=== PATIENT | female | born 1975 | race Caucasian/White ===

== ENCOUNTER 2019-07-22 21:01 | Emergency (ER) | payer MEDICAID, OTHER ==
[~2019-07-22] VITALS: Ht 180.3 cm; Wt 77.1 kg
[2019-07-22 22:05] LABS: Urine Bacteria NONE SEEN /hpf (None Seen); Urine Blood Negative /uL (Negative); Urine Specific Gravity 1.017 (1.001-1.035); Urine WBC 3 /hpf (0 - 5)
[2019-07-23] MEDS ORDERED: AZITHROMYCIN 250 MG TAB PO ONE (02:00)
[2019-07-23] MEDS ORDERED: PENICILLIN G BENZ 1200000 UNITS/2 ML SYRG IM ONE (02:00)
[2019-07-23] MEDS ORDERED: cefTRIAXone SOD 1,000 MG VL IM ONE (02:00)
[2019-07-23 02:39] VITALS: BP 120/80
[2019-07-24 05:06] LABS: RPR Non Reactive (Non Reactive)
== END 2019-07-23 02:40 | disposition home or self-care (01) ==
LOC: ER 21:04
DX: N89.8 Other specified noninflammatory disorders of vagina (principal); Z20.2 Contact with and (suspected) exposure to infections with a predominantly sexual mode of transmission
CPT/HCPCS: 81001; 81025; 84112; 86256; 86592; 86703; 87210; 87491; 87591; 96372; 99283; J0561; J0696

== ENCOUNTER 2025-01-28 08:29 | Outpatient (CLI) | payer OTHER ==
[2025-01-28 09:23] LABS: Hematocrit 39.7 % (36.0-46.0); Hemoglobin 13.1 g/dL (12.2-16.2); Mean Corpuscular Hemoglobin 28.4 pg (28.0-32.0); Mean Corpuscular Volume 85.8 fL (80.0-100.0); Nucleated Red Blood Cells % 0.1 %
[2025-01-28 09:33] LABS: Alanine Aminotransferase 10 U/L (7-40); Alkaline Phosphatase 74 U/L (46-116); Anion Gap 9 (5-15); BUN/Creatinine Ratio 10.3 (10.0-20.0); Blood Urea Nitrogen 9 mg/dL (9-23); Calcium 10.1 mg/dL (8.7-10.4); Carbon Dioxide 24 mmol/L (20-31); Cholesterol 199 mg/dL (< 200); Glucose 100 mg/dL (74-106); Potassium 4.1 mmol/L (3.5-5.1); Sodium 142 mmol/L (136-145); Total Protein 7.1 g/dL (5.7-8.2); Triglycerides 82 mg/dL (< 150)
[2025-01-28 09:34] LABS: Bilirubin, Total 0.6 mg/dL (0.2-1.0)
[2025-01-28 09:35] LABS: Albumin 4.9 g/dL (3.2-4.8); Chloride 109 mmol/L (98-107); HDL Cholesterol 64 mg/dL (40-59)
[2025-01-28 10:37] LABS: Follicle Stimulating Hormone 18.74 IU/L (SEE BELOW)
== END 2025-01-28 17:00 | disposition home or self-care (01) ==
LOC: LAB 08:29
PROVIDERS: ATTEND Internal Medicine
DX: E78.00 Pure hypercholesterolemia, unspecified (principal); R68.89 Other general symptoms and signs; N95.9 Unspecified menopausal and perimenopausal disorder; L68.0 Hirsutism
CPT/HCPCS: 36415; 80053; 80061; 83001; 83002; 83036; 84403; 85025

== ENCOUNTER 2025-03-05 14:22 | Inpatient (IN) | payer OTHER, MEDICAID ==
[~2025-03-05] VITALS: Ht 180.3 cm; Wt 117.0 kg
--- NOTE | 2025-03-05 15:20 | DVH ---
CHEST RADIOGRAPH Indication: weakness Technique: Single frontal view of the chest was obtained Comparison: XY CHEST TWO VIEWS ROUTINE on DOS: 01/28/25 FINDINGS: Lines and Tubes: None Lungs: No focal consolidation. Pleura: No effusion. No pneumothorax. Cardiomediastinal contours: Unremarkable Bones: No acute osseous abnormality. IMPRESSION: 1. No acute cardiopulmonary disease. 2. Mild elevation left diaphragm.
[2025-03-05 15:22] LABS: Hematocrit 40.3 % (36.0-46.0); Hemoglobin 13.6 g/dL (12.2-16.2); Mean Corpuscular Hemoglobin 28.0 pg (28.0-32.0); Mean Corpuscular Volume 83.0 fL (80.0-100.0); Nucleated Red Blood Cells % 0.0 %
[2025-03-05 15:29] LABS: Potassium 4.1 mmol/L (3.5-5.1); Sodium 142 mmol/L (136-145)
[2025-03-05 15:30] LABS: Anion Gap 10 (5-15); Carbon Dioxide 21 mmol/L (20-31)
[2025-03-05 15:31] LABS: Calcium 9.1 mg/dL (8.7-10.4); Chloride 111 mmol/L (98-107)
[2025-03-05 15:35] LABS: BUN/Creatinine Ratio 16.7 (10.0-20.0); Blood Urea Nitrogen 11 mg/dL (9-23); Glucose 97 mg/dL (74-106)
--- NOTE | 2025-03-05 16:36 | ED.PDOC ---
HPI (NEURO) HPI Comments This is a 50 year old female ROGERA presenting to the ED with chief complaint of generalized weakness. Patient reports that she has been experiencing generalized weakness for the past week along with associated dizziness, nausea, vomiting, and diarrhea for the past 2 days. Patient notes history of migraines, but her medication had not provided relief. Patient denies any headache, chest pain, SOB, fever, chills, or syncope. Chief Complaint: General Weakness Time Seen by MD: 14:00 Primary Care Provider: LILLIAN Lujan Notes: Nurses Notes, Switchboard Receptionist Notes, Medications, Allergies Information Source: Patient, Emergency Med Personnel Mode of Arrival: EMS Severity: Moderate Dizziness/Weakness Severity: Unable to do activities Headache Severity: None Timing: Days, Weeks Duration: Since onset Prehospital treatment: None Weakness Location: Generalized Onset: At rest Circumstances: Spontaneous Symptoms: Vertigo, Weakness Past Medical History Past Medical History (Other): Migraines Surgical History: Denies all surgeries HEAD OF MARKETING History: No Pertinent HEAD OF MARKETING History Family History Family History: Reviewed,noncontributory to illness, No family hx of Cancer, No family hx of DM, No family hx of Heart hao, No family hx of HTN, No family hx ofKidney hao, No family hx of Liver hao, No family hx of Lung hao, No family hx of Stroke Social History Smoker: Non-Smoker Alcohol: Denies ETOH Use Drugs: Denies Drug Use Lives In: Home Constitutional: denies: chills, diaphoresis, fatigue, fever, malaise, sweats, weakness, others EENTM: denies: blurred vision, double vision, ear bleeding, ear discharge, ear drainage, ear pain, ear ringing, eye pain, eye redness, hearing loss, mouth pain, mouth swelling, nasal discharge, nose bleeding, nose congestion, nose pain, photophobia, tearing, throat pain, throat swelling, voice changes, others Respiratory: denies: cough, hemoptysis, orthopnea, SOB at rest, shortness of breath, SOB with excertion, stridor, wheezing, others Cardiovascular: denies: chest pain, dizzy spells, diaphoresis, Dyspnea on exertion, edema, irregular heart beat, left arm pain, lightheadedness, palpitations, PND, syncope, others Gastrointestinal: reports: diarrhea, nausea, vomiting; denies: abdomen distended, abdominal pain, blood streaked bowels, constipated, dysphagia, difficulty swallowing, hematemesis, melena, poor appetite, poor fluid intake, rectal bleeding, rectal pain, others Genitourinary: denies: abnormal vagina bleeding, burning, dyspareunia, dysuria, flank pain, frequency, hematuria, incontinence, pain, , vagina discharge, urgency, others Neurological: reports: dizziness, weakness; denies: fainting, headache, left sided numbness, left sided weakness, numbness, paresthesia, pre-existing deficit, right sided numbness, right sided weakness, seizure, speech problems, tingling, tremors, others Musculoskeletal: denies: back pain, gout, joint pain, joint swelling, muscle pain, muscle stiffness, neck pain, others Integumetry: denies: bruises, change in color, change in hair/nails, dryness, laceration, lesions, lumps, rash, wounds, others Allergic/Immunocompromised: denies: Difficulty Healing, Frequent Infections, Hives, Itching, others Hematologic/Lymphatic: denies: anemia, blood clots, easy bleeding, easy bruising, swollen glands, others Endocrine: denies: excessive hunger, excessive sweating, excessive thirst, excessive urination, flushing, intolerance to cold, intolerance to heat, unexplained weight gain, unexplained weight loss, others Psychiatric: denies: anxiety, bipolar disorder, depression, hopeless, panic disorder, schizophrenia, sleepless, suicidal, others All Other Systems: Reviewed and Negative Physical Exam General Appearance: No Apparent Distress, Normal HEENT: Normal ENT Inspection, Pharynx Normal, TMs Normal Neck: Full Range of Motion, Non-Tender, Normal, Normal Inspection Respiratory: Chest Non-Tender, Lungs Clear, No Accessory Muscle Use, No Respiratory Distress, Normal Breath Sounds Cardiovascular: No Edema, No JVD, No Murmur, No Gallop, Normal Peripheral Pulses, Regular Rate/Rhythm Breast Exam: Deferred Gastrointestinal: No Organomegaly, Non Tender, No Pulsatile Mass, Normal Bowel Sounds, Soft Genitalia: Deferred Pelvic: Deferred Rectal: Deferred Extremities: No calf tenderness, Normal capillary refill, Normal inspection, Normal range of motion, Non-tender, No pedal edema Musculoskeletal : Apperance: Normal Neurologic: Alert, buccaro II-XII nml as Tested, No Motor Deficits, Normal Affect, Normal Mood, No Sensory Deficits Cerebellar Function: Normal Reflexes: Normal Skin: Dry, Normal Color, Warm Lymphatic: No Adenopathy Was a procedure done? Was a procedure done?: No Differential Diagnosis (SZ) Seizure: N/A CVA: Hypoglycemia, Hypoxemia General Weakness: Dehydration, Dysrhythmia, Electrolyte imbalance, Hypotension, Repiratory failure Headache: N/A X-Ray, Labs, Meds, VS Vital Signs Date Time Temp Pulse Resp B/P (MAP) Pulse Ox O2 Delivery O2 Flow Rate FiO2 03/05/25 14:25 98.0 62 18 137/79 97 98.0 Lab Test 03/05/25 17:52 03/05/25 15:51 03/05/25 15:08 Range/Units Troponin I High Sensitivity Pending < 3 L < 3 L </=34 ng/L White Blood Count 7.9 4.4-10.8 10^3/uL Red Blood Count 4.86 4.0-5.20 10^6/uL Hemoglobin 13.6 12.2-16.2 g/dL Hematocrit 40.3 36.0-46.0 % Mean Corpuscular Volume 83.0 80.0-100.0 fL Mean Corpuscular Hemoglobin 28.0 28.0-32.0 pg Mean Corpuscular Hemoglobin Concent 33.8 32.0-36.0 g/dL Red Cell Distribution Width 14.3 11.8-14.3 % Platelet Count 331 140-450 10^3/uL Mean Platelet Volume 7.7 6.9-10.8 fL Neutrophils (%) (Auto) 79.3 37.0-80.0 % Lymphocytes (%) (Auto) 14.1 10.0-50.0 % Monocytes (%) (Auto) 4.9 0.0-12.0 % Eosinophils (%) (Auto) 0.7 0.0-7.0 % Basophils (%) (Auto) 1.0 0.0-2.0 % Neutrophils # (Auto) 6.3 1.6-8.6 10 ^3/uL Lymphocytes # (Auto) 1.1 0.4-5.4 10 ^3/uL Monocytes # (Auto) 0.4 0-1.3 10 ^3/uL Eosinophils # (Auto) 0.1 0-0.8 10 ^3/uL Basophils # (Auto) 0.1 0-0.2 10 ^3/uL Nucleated Red Blood Cells 0.0 % Sodium Level 142 136-145 mmol/L Potassium Level 4.1 3.5-5.1 mmol/L Chloride Level 111 H 98-107 mmol/L Carbon Dioxide Level 21 20-31 mmol/L Anion Gap 10 5-15 Blood Urea Nitrogen 11 9-23 mg/dL Creatinine 0.66 0.550-1.02 mg/dL Glomerular Filtration Rate Calc 108 >90 mL/min BUN/Creatinine Ratio 16.7 10.0-20.0 Serum Glucose 97 74-106 mg/dL Calcium Level 9.1 8.7-10.4 mg/dL Time of 1ST Reevaluation: 15:00 Reevaluation 1ST: Unchanged Patient Education/Counseling: Diagnosis, Treatment Family Education/Counseling: No Family Present Departure 1 Departure Time of Disposition: 18:43 (Patient with worsening weakness and multiple episodes of near-syncope. We will admit patient for further workup and expert consultation) Impression: Primary Impression: Generalized weakness Additional Impression: Near syncope Disposition: ADMITTED INPATIENT Admit to: Med Surg Condition: Serious Critical Care Note Critical Care Time?: No Stability Stability form required: No Heart Score Heart Score: Heart Score Response (Comments) Value History N/A 0 EKG N/A 0 Age N/A 0 Risk Factors N/A 0 Troponin N/A 0 Total 0 I personally scribed for CARLOS GEE MD ([email or web address]) on 03/05/25 at 16:36. Electronically submitted by Isael Vivas ([email or web address]). CARLOS GEE MD Mar 05, 2025 16:36
[2025-03-05 19:42] LABS: Urine Protein, UAD Negative (Negative)
--- NOTE | 2025-03-05 19:52 | DVH ---
CLINICAL HISTORY: near syncope TECHNIQUE: Helical scanning was performed of the head from the skull base to the vertex. Multiplanar reconstructions were performed. This exam was performed according to our departmental dose optimizat ion program. Up-to-date CT equipment and radiation dose reduction techniques are utilized as appropri ate. CTDI 63.6 DLP 07/02/44 .4 I did edit COMPARISON: None FINDINGS: There is no evidence for acute intracranial hemorrhage, acute ischemic changes, mass, mass effect, or extra-axial fluid collection. There is no hydrocephalus or midline shift. There is no effacement of the cerebral sulci and basal subarachnoid cisterns. The davila-white matter differentiation is well alida ntained. The imaged paranasal sinuses are clear. IMPRESSION: NO ACUTE INTRACRANIAL ABNORMALITY SEEN.
[2025-03-05] MEDS: ONDANSETRON HCL 4 MG/2 ML VIAL IV ONE (20:57)
[2025-03-05] MEDS: SODIUM CHLORIDE 0.9% 1,000 ML IV ONE (20:58)
[2025-03-05 22:20] VITALS: PULSE 69; RESP 18; O2SAT 98
[2025-03-05] MEDS ORDERED: SODIUM CHLORIDE 0.9% 1,000 ML IV SCH (23:30)
[2025-03-05] MEDS ORDERED: DOCUSATE SOD 100 MG CAP PO PRN (23:30)
[2025-03-05] MEDS ORDERED: ACETAMINOPHEN 325 MG TAB PO PRN (23:30)
[2025-03-06] VITALS (10 sets, daily range): BP systolic 117–143; BP diastolic 66–95; PULSE 53–81; RESP 16–22; TEMP 97.4–98.2; O2SAT 97–100
[2025-03-06] MEDS: SODIUM CHLORIDE 0.9% 1,000 ML IV SCH (06:15)
[2025-03-06] MEDS ORDERED: ALBUTEROL SULF 2.5 MG/0.5ML(0.5%) NEB SOLN NEB PRN (06:15)
[2025-03-06] MEDS ORDERED: ACETAMINOPHEN 325 MG TAB PO PRN (06:15)
[2025-03-06] MEDS ORDERED: SUMA50TA16 PO (06:34)
[2025-03-06] MEDS: ONDANSETRON HCL 4 MG/2 ML VIAL IV PRN (07:03)
[2025-03-06] MEDS: PANTOPRAZOLE 40 MG/10 ML VIAL INJ IV SCH (07:03)
[2025-03-06 07:42] LABS: Hematocrit 36.9 % (36.0-46.0); Hemoglobin 12.6 g/dL (12.2-16.2); Mean Corpuscular Hemoglobin 28.2 pg (28.0-32.0); Mean Corpuscular Volume 82.9 fL (80.0-100.0); Nucleated Red Blood Cells % 0.0 %
[2025-03-06 07:44] LABS: Alanine Aminotransferase 12 U/L (7-40); Alkaline Phosphatase 69 U/L (46-116); Anion Gap 11 (5-15); BUN/Creatinine Ratio 11.3 (10.0-20.0); Calcium 8.9 mg/dL (8.7-10.4); Glucose 82 mg/dL (74-106); Sodium 142 mmol/L (136-145); Total Protein 6.7 g/dL (5.7-8.2)
[2025-03-06 07:45] LABS: Albumin 4.2 g/dL (3.2-4.8); Bilirubin, Total 0.6 mg/dL (0.2-1.0)
[2025-03-06 07:56] LABS: Blood Urea Nitrogen 8 mg/dL (9-23); Carbon Dioxide 20 mmol/L (20-31); Chloride 111 mmol/L (98-107); Potassium 3.5 mmol/L (3.5-5.1)
[2025-03-06 08:03] LABS: Magnesium 1.9 mg/dL (1.6-2.6)
--- NOTE | 2025-03-06 09:36 | DVHHPRES ---
History of Present Illness Resident Creating Document: CHIARA ROSS RESIDENT History of Present Illness History of Present Illness (HPI): Adore Argueta is a 50-year-old female with a medical history of migraines, asthma, and dyslipidemia who presented to the emergency department via ambulance with a chief complaint of generalized weakness. She reported experiencing this weakness for the past week, which was accompanied by dizziness, nausea, vomiting, and diarrhea over the last two days. On the morning prior to presentation, she had a migraine episode that was not relieved by her usual medication, along with significant dizziness and five episodes of non-bloody vomiting at home. These symptoms left her unable to walk. She denied eating anything unusual before the onset of symptoms and reported no loss of consciousness or falls. Additionally, she denied headache at the time of evaluation, as well as chest pain, shortness of breath, fever, chills, or s yncope. Past Medical History (PMH): migraines, asthma, and dyslipidemia Past Surgical History (PSH): No surgical history Family history (FH): history of stroke and leukemia in grandmother EtOH: occasional alcohol use Smoking /Vaping: patient denies smoking Recreational Drugs: admits to use of marijuana Residence: lives with and child Home Medications: no home medications Allergies: citrus fruits PCP: Dr. Lou Specialist relevant to admission: nonrelevant Review of Systems Review of Systems General: Complains of generalized tiredness, patient denies fever, weakness, sweating, any recent changes in appetite and weight HEENT: Complains of headache Cardiovascular: Denies chest pain, palpitations, dyspnea on exertion, orthopnea, or claudication. Respiratory: No cough, and wheezing. Gastrointestinal: Complains of vomiting, Denies nausea, dysphagia, odynophagia, heartburn, abdominal pain, flatulence, bloating, diarrhea, constipation, change in stool, or blood in stool. Genitourinary: No dysuria, hematuria, discharge, frequency, urgency, nocturia, incontinence, and urinary retention. Endocrine: No heat or cold intolerance, polydipsia, polyuria, and polyphagia. Neurological: No dizziness, extremity weakness and numbness, tremors, gait disturbance, seizures, and memory impairment. Psychiatric: Denies depression, anxiety,or insomnia. Musculoskeletal: Denies neck pain, stiffness and swelling, back pain, muscle weakness, joint pain, stiffness, swelling, or limited range of motion. Skin: No rashes, itching, skin lesion, changes in hair, nail, skin texture and breast. Hematologic/Lymphatic: Denies easy bruising, bleeding tendencies, or lymph node enlargement. Allergies: Uncoded Allergies: oranges (Allergy, Intermediate, hives, 03/06/25) patient stated she cant eat or touch oranges, harsh or fruit from that family, patient stats she has bad reactions. Medications Current Medications Medications Dose Ordered Sig/Cat Route Start Time Stop Time Status Last Admin Dose Admin Ondansetron HCl 4 mg Q4HP PRN IV 03/05/25 23:30 03/06/25 07:03 4 MG Docusate Sodium 100 mg BIDPRN PRN PO 03/05/25 23:30 Sodium Chloride 1,000 ml @ 100 mls/hr Q10H IV 03/06/25 06:15 03/06/25 06:15 100 MLS/HR Acetaminophen 650 mg Q4HP PRN PO 03/06/25 06:15 Albuterol 2.5 mg Q6HPRN PRN NEB 03/06/25 06:15 Ceftriaxone Sodium 50 ml @ 100 mls/hr DAILY@09 IV 03/06/25 09:00 Pantoprazole Sodium 40 mg DAILY IV 03/06/25 06:15 03/06/25 07:03 40 MG Exam Vital Signs Vital Signs Date Time Temp Pulse Resp B/P (MAP) Pulse Ox O2 Delivery O2 Flow Rate FiO2 03/06/25 08:08 97 Room Air* 0 21 03/06/25 05:00 98.1 58 17 134/90 (105) 98.1 Exam General Appearance: Alert, Oriented X3, Cooperative, No acute distress HEENT: Atraumatic, PERRLA, EOMI, Mucous membrane moist/pink Respiratory: Clear to auscultation, Normal air movement Cardiovascular: Regular rate, Normal S1, Normal S2, No murmurs, no chest wall tenderness Abdominal: Diffuse abdominal tenderness present Extremities: No clubbing, No cyanosis, No edema, Normal pulses, No tenderness/swelling Skin: No rashes, No breakdown, No significant lesion Neuro: Normal gait, Normal speech, Strength at 5/5 X4 ext, Normal tone, Sensation intact, Cranial nerves 3-12 NL, Reflexes 2+ Psych/Mental Status: Mental status NL, Mood NL Labs/Xrays Labs Test 03/06/25 06:51 03/05/25 19:25 03/05/25 17:52 Range/Units White Blood Count 7.9 4.4-10.8 10^3/uL Red Blood Count 4.45 4.0-5.20 10^6/uL Hemoglobin 12.6 12.2-16.2 g/dL Hematocrit 36.9 36.0-46.0 % Mean Corpuscular Volume 82.9 80.0-100.0 fL Mean Corpuscular Hemoglobin 28.2 28.0-32.0 pg Mean Corpuscular Hemoglobin Concent 34.0 32.0-36.0 g/dL Red Cell Distribution Width 14.3 11.8-14.3 % Platelet Count 287 140-450 10^3/uL Mean Platelet Volume 7.9 6.9-10.8 fL Neutrophils (%) (Auto) 69.2 37.0-80.0 % Lymphocytes (%) (Auto) 22.0 10.0-50.0 % Monocytes (%) (Auto) 7.0 0.0-12.0 % Eosinophils (%) (Auto) 1.1 0.0-7.0 % Basophils (%) (Auto) 0.7 0.0-2.0 % Neutrophils # (Auto) 5.4 1.6-8.6 10 ^3/uL Lymphocytes # (Auto) 1.7 0.4-5.4 10 ^3/uL Monocytes # (Auto) 0.5 0-1.3 10 ^3/uL Eosinophils # (Auto) 0.1 0-0.8 10 ^3/uL Basophils # (Auto) 0.1 0-0.2 10 ^3/uL Nucleated Red Blood Cells 0.0 % Sodium Level 142 136-145 mmol/L Potassium Level 3.5 3.5-5.1 mmol/L Chloride Level 111 H 98-107 mmol/L Carbon Dioxide Level 20 20-31 mmol/L Anion Gap 11 5-15 Blood Urea Nitrogen 8 L 9-23 mg/dL Creatinine 0.71 0.550-1.02 mg/dL Glomerular Filtration Rate Calc 105 >90 mL/min BUN/Creatinine Ratio 11.3 10.0-20.0 Serum Glucose 82 74-106 mg/dL Calcium Level 8.9 8.7-10.4 mg/dL Phosphorus Level 2.4 2.4-5.1 mg/dL Magnesium Level 1.9 1.6-2.6 mg/dL Total Bilirubin 0.6 0.2-1.0 mg/dL Aspartate Amino Transferase (AST) 13 13-40 U/L Alanine Aminotransferase (ALT) 12 7-40 U/L Alkaline Phosphatase 69 46-116 U/L B-Type Natriuretic Peptide 21.55 0-100 pg/mL Total Protein 6.7 5.7-8.2 g/dL Albumin 4.2 3.2-4.8 g/dL Vitamin B12 Level 457 211-911 pg/mL Beta HCG, Quantitative < 0.0 L 1.5-4.2 mIU/mL Plasma/Serum Blood Alcohol < 3.0 <10 mg/dL Urine Color Yellow Yellow Urine Clarity Turbid H Clear Urine pH 5.5 5.0-9.0 Urine Specific [place] 1.027 1.001-1.035 Urine Protein Negative Negative Urine Ketones 3+ H Negative Urine Blood Negative Negative /uL Urine Nitrite Negative Negative Urine Bilirubin Negative Negative Urine Urobilinogen Normal Negative mg/dL Urine Leukocyte Esterase 2+ Negative /uL Urine RBC 7 0 - 4 /hpf Urine Microscopic WBC 6 H 0-5 /HPF Urine Squamous Epithelial Cells Few <5 /hpf Urine Bacteria Few H None Seen /hpf Urine Mucus Few None Seen Urine Glucose Normal Normal mg/dL Troponin I High Sensitivity < 3 L </=34 ng/L SEPSIS Sepsis Screen Date sepsis recognized/suspect: Mar 05, 2025 Time Sepsis recognized/suspect: 1424 Recent Procedure: No On Antibiotic Therapy: No Respiratory Rate >20: No Heart Rate >90: No Temp<36 C (96.8 F) or >38.3 C: No SBP <90 or MAP <65 mmHG: No New Acute Mental Status Change: No Is the patient on CPAP, BIPAP,: No Physician Orders Sodium Chloride 0.9% (03/06/25 06:15) Acetaminophen Tablet (Tylenol Tablet) (03/06/25 06:15) Urine Bacterial Culture (03/06/25 06:02) Blood Culture (03/06/25 06:02) Albuterol Medneb (Ventolin Medneb) (03/06/25 06:15) Transfer Orders (03/06/25 06:02) Orthostatic Vital Signs (03/06/25 06:02) Ceftriaxone 1gm/50ml (Rocephin) (03/06/25 09:00) Electrocardigram (03/06/25 06:02) Lactic Acid W/ Reflex Order (03/06/25 06:02) Pantoprazole (Protonix) (03/06/25 06:15) Clostridium Difficile Toxin (03/06/25 06:02) Ova & Parasite Exam (03/06/25 06:02) Stool Bacterial Culture (03/06/25 06:02) Stool Occult Blood (03/06/25 06:02) Gram Stain (03/06/25 06:02) Stool Wbc (03/06/25 06:02) Npo Except Ice Chips (03/06/25 06:02) Npo (Nothing By Mouth) Diet (03/06/25 Breakfast) Chlamydia/Gc Amplification (03/06/25 06:18) Echo 2d Mode Cardiac Dop (03/06/25 06:22) Drug Screen (03/06/25 09:17) Thyroid Stimulating Hormone (03/06/25 09:17) PTPTT (03/06/25 09:17) Enoxaparin Sodium (Lovenox) (03/06/25 10:00) Vital Signs Date Time Temp Pulse Resp B/P (MAP) Pulse Ox O2 Delivery O2 Flow Rate FiO2 03/06/25 08:08 97 Room Air* 0 21 03/06/25 08:08 97 Room Air 0.0 03/06/25 05:00 98.1 58 17 134/90 (105) 98 98.1 03/06/25 04:02 58 17 98 Room Air* 0 21 Laboratory Tests Test 03/06/25 06:51 White Blood Count 7.9 10^3/uL (4.4-10.8) Medications Medications Dose Ordered Sig/Cat Route Start Time Stop Time Status Last Admin Dose Admin Ondansetron HCl 4 mg Q4HP PRN IV 03/05/25 23:30 03/06/25 07:03 4 MG Pantoprazole Sodium 40 mg DAILY IV 03/06/25 06:15 03/06/25 07:03 40 MG Sodium Chloride 1,000 ml @ 100 mls/hr Q10H IV 03/06/25 06:15 03/06/25 06:15 100 MLS/HR Assessment/Plan Assessment/Plan # Presyncope to rule out cardiac and neurological causes - EKG - ECHO - CT head showed no intracranial abnormalities - BNP - admitted to telemetry # Urinary tract infection - IV ceftriaxone - Urine culture, blood culture # To rule out acute gastroenteritis - stool bacterial culture, stool ova and parasite exam - kept on NPO, progress gradually to clear liquid diet and soft foods as tolerated # History of asthma - albuterol nebulization as needed # History of migraine - acetaminophen as needed PUD prophylaxis: protonix 40mg DVT prophylaxis: brisk movement. Barriers to discharge: Medical diagnosis and management in progress. Patient lives with family. Independent for ADL. PCP: Dr. Lou Specialist Relevant To Admission: nonrelevant Case discussed with Dr. Lou. Code Status: Full Code. Complex patient care discussion needed. Spend total 37 minutes for bedside assessment, case discussion and management. Plan discussed with: Patient My Orders Orders - CHIARA ROSS RESIDENT Procedure Category Date Status Time Admit ADMIT 03/05/25 Transmitted 23:22 Allergies WHITNEY 03/05/25 In Process 23:22 Code Status CODE 03/05/25 Transmitted 23:22 Ondansetron Hcl PHA 03/05/25 In Process (Zofran) 23:30 Docusate Sodium PHA 03/05/25 In Process Capsule (Colace 23:30 Condition: Fair WHITNEY 03/05/25 In Process 23:22 Sodium Chloride 0.9% PHA 03/06/25 In Process 06:15 Acetaminophen Tablet PHA 03/06/25 In Process (Tylenol Tablet) 06:15 Urine Bacterial JEROME 03/06/25 In Process Culture 06:02 Blood Culture JEROME 03/06/25 Logged 06:02 Albuterol Medneb PHA 03/06/25 In Process (Ventolin Medneb) 06:15 Transfer Orders XFER 03/06/25 Transmitted 06:02 Orthostatic Vital ORDERS 03/06/25 Transmitted Signs 06:02 Ceftriaxone 1gm/50ml PHA 03/06/25 In Process (Rocephin) 09:00 Electrocardigram EKG 03/06/25 Logged 06:02 Lactic Acid W/ Reflex LAB 03/06/25 Logged Order 06:02 Pantoprazole PHA 03/06/25 In Process (Protonix) 06:15 Clostridium Difficile JEROME 03/06/25 Logged Toxin 06:02 Ova & Parasite Exam JEROME 03/06/25 Logged 06:02 Stool Bacterial JEROME 03/06/25 Logged Culture 06:02 Stool Occult Blood LAB 03/06/25 Logged 06:02 Gram Stain JEROME 03/06/25 Logged 06:02 Stool Wbc LAB 03/06/25 Logged 06:02 Npo Except Ice Chips WHITNEY 03/06/25 In Process 06:02 Npo (Nothing By DIET 03/06/25 Transmitted Mouth) Diet Breakfast Chlamydia/Gc LAB 03/06/25 Logged Amplification 06:18 Echo 2d Mode Cardiac US 03/06/25 Logged DOP 06:22 Date of Service: Mar 05, 2025 Billing Provider: RAMÓN LOU MD Common Visit Codes: [id number] INP/OBS CARE (HIGH) Secondary Visit Codes: [id number] CARE PLAN 30 MINUTES CHIARA ROSS RESIDENT Mar 06, 2025 09:36
[2025-03-06 09:47] LABS: Cannabinoid Screen, Urine Pos (NEGATIVE)
[2025-03-06 09:50] LABS: Barbiturate Scree,Urine Neg (NEGATIVE); Opiate Scree,Urine Neg (NEGATIVE); Phencyclidine Screen, Urine Neg (NEGATIVE)
[2025-03-06 09:51] LABS: Amphetamine Screen, Urine Neg (NEGATIVE); Benzodiazephine Screen, Urine Neg (NEGATIVE); Cocaine Screen, Urine Neg (NEGATIVE)
[2025-03-06] MEDS ORDERED: MECLIZINE HCL 25 MG TAB PO PRN (10:45)
[2025-03-06] MEDS: ENOXAPARIN SOD 40 MG/0.4 ML SYRINGE SC SCH (11:21)
[2025-03-06] MEDS ORDERED: IBUPROFEN 600 MG TAB PO PRN ×2 (11:30→15:45)
[2025-03-06 11:54] LABS: INR 1.08 (0.9-1.15); Partial Thromboplastin Time 30.5 SEC (24.5-34.5); Prothrombin Time 11.4 sec (9.3-11.8)
--- NOTE | 2025-03-06 16:23 | DVHPNRES ---
Progress Note Date Seen: Mar 06, 2025 Resident Creating Document: JUAN CONNELL RESIDENT Medical Necessity Reason Pt with a Central, PICC or Fol: No Subjective Review of Systems This is a 50-year-old female who presented to the ED with a chief complaint of i ntractable nausea and vomiting followed by generalized weakness. The patient mentions she had nausea, vomiting and diarrhea since 2 days. The patient mentions she woke up in the middle of the night with a migraine headache 1 day back and had 5 episodes of vomiting, which made her feel so weak that she could not walk to the bathroom and had to crawl to the bathroom. She also experienced dizziness the patient explained as a feeling like the whole room is spinning. She tried taking her migraine medication but it did not relieve her symptoms. She experienced generalized weakness after the episodes and hence came to the hospital. She denies any headache, fever, chills or syncope. Past medical history: Migraine, asthma, dyslipidemia Past surgical history: No surgical history Social & Personal history: Lives with and children Smoking: Patient denies Alcohol: Occasionally Drugs: Occasional use of marijuana Allergies: Uncoded Allergies: oranges (Allergy, Intermediate, hives, 03/06/25) patient stated she cant eat or touch oranges, harsh or fruit from that family, patient stats she has bad reactions. Patient seen and examined at bedside. Patient is alert and oriented to time, place person and responding to all questions. Patient complains of headache. Eyes: No Pain, No Vision change, No Conjunctivae inflammation, No Eyelid inflammation, No Redness ENT: No Ear pain, No Ear discharge, No Nose pain, No Nose discharge, No Nose congestion, No Mouth pain, No Mouth swelling, No Throat pain, No Throat swelling Cardiovascular: No Chest Pain, No Palpitations, No Orthopnea, No Paroxysmal No Dyspnea, No Edema, No Lt Headedness Respiratory: No Cough, No Dry, No Shortness of breath, No SOB with exertion, No Wheezing, No Hemoptysis, No Pleuritic Pain, No Sputum Gastrointestinal: Nausea, No Vomiting, No Abdominal Pain, No Diarrhea, No Constipation, No Melena, No Hematochezia Genitourinary: No Dysuria, No Frequency, No Incontinence, No Hematuria, No Retention Objective vital signs Vital Sign Date Time Temp Pulse Resp B/P (MAP) Pulse Ox O2 Delivery O2 Flow Rate FiO2 03/06/25 13:00 97.7 64 22 139/91 (107) 100 97.7 03/06/25 11:04 0.0 21 03/06/25 08:08 Room Air* Total Intake and Output 03/05/25 03/05/25 03/06/25 15:00 23:00 07:00 Intake Total 150 ml Balance 150 ml medications Current Medications Medications Dose Ordered Sig/Cat Route Start Time Stop Time Status Last Admin Dose Admin Ondansetron HCl 4 mg Q4HP PRN IV 03/05/25 23:30 03/06/25 07:03 4 MG Docusate Sodium 100 mg BIDPRN PRN PO 03/05/25 23:30 Sodium Chloride 1,000 ml @ 100 mls/hr Q10H IV 03/06/25 06:15 03/06/25 06:15 100 MLS/HR Acetaminophen 650 mg Q4HP PRN PO 03/06/25 06:15 Albuterol 2.5 mg Q6HPRN PRN NEB 03/06/25 06:15 Ceftriaxone Sodium 50 ml @ 100 mls/hr DAILY@09 IV 03/06/25 09:00 03/06/25 11:21 100 MLS/HR Pantoprazole Sodium 40 mg DAILY IV 03/06/25 06:15 03/06/25 11:21 40 MG Enoxaparin Sodium 40 mg DAILY SC 03/06/25 10:00 03/06/25 11:21 40 MG Meclizine HCl 12.5 mg [id number] PRN PO 03/06/25 10:45 Sumatriptan Succinate 50 mg DAILY PO 03/07/25 10:00 Future Hold Ibuprofen 600 mg Q6HP PRN PO 03/06/25 11:30 Ibuprofen 600 mg Q6HP PRN PO 03/06/25 15:45 Metronidazole 100 ml @ 100 mls/hr Q8HR IV 03/06/25 22:00 Examination General Appearance: Cooperative. Well developed. Well nourished. NAD Head Exam: Normal inspection Neck Exam: Normal inspection. Non-tender. Normal alignment Pulmonary/Respiratory: Chest non-tender. Clear bilateral breath sounds, no crackles, no wheezing. Cardiovascular/Chest: Regular rate and rhythm. No murmurs. No JVD. Peripheral Pulses: 2+ Radial (R). 2+ Radial (L). 2+ Pedal (R). 2+ Pedal (L) Abdominal Exam: Generalized abdominal tenderness present, Normal bowel sounds. Soft. normal abdomen, no visible veins, No hepatospenomegaly. No masses Ankle Exam: Negative ankle edema Lower extremities: Negative lower extremity edema Neuro/Mental Status: A&O x4. Coherent. Thoughts/Psych: Normal thought pattern. Appropriate mood and affect. Good judgement and insight Skin Exam: Normal inspection. Normal color. Warm. Dry laboratory and microbiology Laboratory Tests 03/06/25 06:51 Test 03/06/25 06:51 Range/Units Serum Glucose 82 74-106 mg/dL Labs and/or images reviewed: Labs reviewed by me, Image(s) reviewed by me Problem List/Assessment/Plan Problem List/Assessment/Plan # Presyncope # Migraine with possible aura # Rule out BPPV -orthostatic vitals negative -head CT shows no acute changes -EKG showed normal sinus rhythm -currently on telemetry -continued sumatriptan 50 mg p.o. -ibuprofen 600 mg Q6 # possible gastroenteritis -IVF -Flagyl IV and Rocephin -symptomatic management with ondansetron # acute complicated UTI -evident on urinalysis -ordered urine bacterial culture -IV Rocephin PUD prophylaxis: Protonix DVT prophylaxis: Lovenox Goals of care: Full code, discussed for >23 minutes Plan discussed with patient Plan discussed with Dr Domínguez Plan discussed with: Patient My Orders My Orders Orders - JUAN CONNELL RESIDENT Procedure Category Date Status Time Ibuprofen Tablet PHA 03/06/25 In Process (Motrin Tablet) 11:30 Full Liq Diet DIET 03/06/25 Transmitted Lunch Ibuprofen Tablet PHA 03/06/25 In Process (Motrin Tablet) 15:45 Metronidazole PHA 03/06/25 In Process 500mg/100ml (Flagyl 22:00 Date of Service: Mar 06, 2025 Billing Provider: HALLEY WISDOM MD Common Visit Codes: [id number] INP/OBS CARE(HIGH) JUAN CONNELL RESIDENT Mar 06, 2025 16:23 HALLEY WISDOM MD Mar 09, 2025 01:35
[2025-03-07] VITALS (9 sets, daily range): BP systolic 124–138; BP diastolic 83–97; PULSE 56–73; RESP 16–18; TEMP 36.6; O2SAT 95–98
--- NOTE | 2025-03-07 02:25 | DVHSR ---
APPROVED REPORT EXAM: Two-dimensional and M-mode echocardiogram with Doppler and color Doppler. Blood Pressure: 134/90 mmHg INDICATION Presyncopy RISK FACTORS Height: 70, Weight: 220 DIMENSIONS LVDd5.0 (3.8-5.7cm)LA (2D)4.1 (1.9-4.0cm)Aortic Root3.5 (2.0-3.7cm) LVDs3.2 (2.5-4.0cm)LA (MM) (1.9-4.0cm)Aortic Cusp Exc2.0 (1.5-2.0cm) EF (%) 65.0 (55-70%)Rt. Atrium4.8 (1.9-4.0cm)Asc. Aorta cm IVSd0.9 (0.7-1.1cm)RV (D) (1.8-2.4cm) PWd0.9 (0.7-1.1cm) Mitral Valve MitralMitral Stenosis E wave0.64m/sMV Mean GR.mmHg A wave0.50m/sMV Peak GR.mmHg E/A ratio1.32D MVAcm2 DECEL [id number] 1/2 [id number] IVRTmsDop MVA2.08cm2 Aortic Valve Aortic ValveAortic Stenosis V11.15m/Giovanni Mean GR.4mmHg V21.35m/Giovanni Peak GR.7mmHg LVOT Diameter1.9 (1.8-2.4cm)Doppler AVA2.41cm2 Pulmonic Valve V20.77m/s Tricuspid Valve TR Velocity2.03m/s [id number] Conclusion LV EF IS 65% AND IS NORMAL NORMAL VALVES SLIGHTLY DILATED LA NORMAL RV FUNCTION NORMAL RVSP IS 20 MM OF HG NO EFFUSION
[2025-03-07 08:01] LABS: Hematocrit 35.4 % (36.0-46.0); Hemoglobin 12.0 g/dL (12.2-16.2); Mean Corpuscular Hemoglobin 28.0 pg (28.0-32.0); Mean Corpuscular Volume 82.8 fL (80.0-100.0); Nucleated Red Blood Cells % 0.1 %
[2025-03-07 08:08] LABS: Potassium 3.9 mmol/L (3.5-5.1); Sodium 142 mmol/L (136-145)
[2025-03-07 08:09] LABS: Anion Gap 9 (5-15); Calcium 8.5 mg/dL (8.7-10.4); Carbon Dioxide 21 mmol/L (20-31); Chloride 112 mmol/L (98-107)
[2025-03-07 08:14] LABS: BUN/Creatinine Ratio 6.5 (10.0-20.0); Glucose 84 mg/dL (74-106)
[2025-03-07 08:16] LABS: Blood Urea Nitrogen 5 mg/dL (9-23)
--- NOTE | 2025-03-07 13:47 | DVHDSRES ---
Discharge Summary Date of Admission Resident Creating Document: JUAN CONNELL RESIDENT Mar 05, 2025 at 23:22 Date of Discharge: Mar 07, 2025 Admitting Diagnosis Intractable nausea and vomiting resulting in generalized weakness with near- syncope Labs/Diagnostic Data: Laboratory Results Test 03/07/25 07:09 03/06/25 11:02 03/06/25 09:54 03/06/25 07:39 White Blood Count 5.5 10^3/uL (4.4-10.8) Red Blood Count 4.28 10^6/uL (4.0-5.20) Hemoglobin 12.0 g/dL (12.2-16.2) Hematocrit 35.4 % (36.0-46.0) Mean Corpuscular Volume 82.8 fL (80.0-100.0) Mean Corpuscular Hemoglobin 28.0 pg (28.0-32.0) Mean Corpuscular Hemoglobin Concent 33.8 g/dL (32.0-36.0) Red Cell Distribution Width 14.2 % (11.8-14.3) Platelet Count 269 10^3/uL (140-450) Mean Platelet Volume 8.0 fL (6.9-10.8) Neutrophils (%) (Auto) 60.9 % (37.0-80.0) Lymphocytes (%) (Auto) 28.9 % (10.0-50.0) Monocytes (%) (Auto) 7.1 % (0.0-12.0) Eosinophils (%) (Auto) 2.2 % (0.0-7.0) Basophils (%) (Auto) 0.9 % (0.0-2.0) Neutrophils # (Auto) 3.4 10 ^3/uL (1.6-8.6) Lymphocytes # (Auto) 1.6 10 ^3/uL (0.4-5.4) Monocytes # (Auto) 0.4 10 ^3/uL (0-1.3) Eosinophils # (Auto) 0.1 10 ^3/uL (0-0.8) Basophils # (Auto) 0 10 ^3/uL (0-0.2) Nucleated Red Blood Cells 0.1 % Sodium Level 142 mmol/L (136-145) Potassium Level 3.9 mmol/L (3.5-5.1) Chloride Level 112 mmol/L (98-107) Carbon Dioxide Level 21 mmol/L (20-31) Anion Gap 9 (5-15) Blood Urea Nitrogen 5 mg/dL (9-23) Creatinine 0.77 mg/dL (0.550-1.02) Glomerular Filtration Rate Calc 95 mL/min (>90) BUN/Creatinine Ratio 6.5 (10.0-20.0) Serum Glucose 84 mg/dL (74-106) Calcium Level 8.5 mg/dL (8.7-10.4) Prothrombin Time 11.4 sec (9.3-11.8) Prothrombin Time INR 1.08 (0.9-1.15) Activated Partial Thromboplast Time 30.5 SEC (24.5-34.5) Lactic Acid Level 1.0 mmol/L (0.4-2.0) Urine Opiates Screen Neg (NEGATIVE) Urine Fentanyl Screen Neg (NEGATIVE) Urine Barbiturates Screen Neg (NEGATIVE) Urine Phencyclidine Screen Neg (NEGATIVE) Urine Amphetamines Screen Neg (NEGATIVE) Urine Benzodiazepines Screen Neg (NEGATIVE) Urine Cocaine Screen Neg (NEGATIVE) Urine Cannabinoids Screen Pos (NEGATIVE) Test 03/06/25 06:51 03/05/25 19:25 03/05/25 17:52 Phosphorus Level 2.4 mg/dL (2.4-5.1) Magnesium Level 1.9 mg/dL (1.6-2.6) Total Bilirubin 0.6 mg/dL (0.2-1.0) Aspartate Amino Transferase (AST) 13 U/L (13-40) Alanine Aminotransferase (ALT) 12 U/L (7-40) Alkaline Phosphatase 69 U/L (46-116) B-Type Natriuretic Peptide 21.55 pg/mL (0-100) Total Protein 6.7 g/dL (5.7-8.2) Albumin 4.2 g/dL (3.2-4.8) Vitamin B12 Level 457 pg/mL (211-911) Thyroid Stimulating Hormone (TSH) 1.62 uIU/mL (0.55-4.78) Beta HCG, Quantitative < 0.0 mIU/mL (1.5-4.2) Plasma/Serum Blood Alcohol < 3.0 mg/dL (<10) Urine Color Yellow (Yellow) Urine Clarity Turbid (Clear) Urine pH 5.5 (5.0-9.0) Urine Specific [place] 1.027 (1.001-1.035) Urine Protein Negative (Negative) Urine Ketones 3+ (Negative) Urine Blood Negative /uL (Negative) Urine Nitrite Negative (Negative) Urine Bilirubin Negative (Negative) Urine Urobilinogen Normal mg/dL (Negative) Urine Leukocyte Esterase 2+ /uL (Negative) Urine RBC 7 /hpf (0 - 4) Urine Microscopic WBC 6 /HPF (0-5) Urine Squamous Epithelial Cells Few /hpf (<5) Urine Bacteria Few /hpf (None Seen) Urine Mucus Few (None Seen) Urine Glucose Normal mg/dL (Normal) Troponin I High Sensitivity < 3 ng/L (</=34) Other Laboratory Tests 03/07/25 07:09 Brief Hx & Hospital Course: The patient is a 50-year-old female who presented to the emergency department with intractable nausea and vomiting, followed by generalized weakness. She reported a two-day history of nausea, vomiting, and diarrhea, and described a severe migraine episode the previous night that led to five episodes of vomiting and significant weakness, to the extent that she had to crawl to the bathroom. She also experienced vertigo, describing it as a sensation of the room spinning. Her usual migraine medication (sumatriptan) was ineffective in relieving her symptoms. She denied headache at the time of presentation, as well as fever, chills, or syncope. Evaluation included orthostatic vitals, which were negative, and a head CT that showed no acute changes. EKG revealed normal sinus rhythm, echocardiogram showed LVEF 60%, and she was monitored on telemetry. She was continued on sumatriptan 50 mg orally and ibuprofen 600 mg every 6 hours for symptomatic relief. Given her gastrointestinal symptoms, likely having possible gastroenteritis, and she was treated with IV fluids, IV Flagyl, and Rocephin, along with ondansetron for nausea. Additionally, urinalysis indicated an acute complicated urinary tract infection, for which IV Rocephin was administered and a urine bacterial culture was ordered. The patients condition improved during her hospital stay; she remained hemodynamically stable and was deemed fit for discharge. She was discharged home with optimal medical therapy and advised to follow up with her primary care provider and the discharge clinic. Lifestyle modifications including a healthy diet and regular exercise were recommended. Past medical history: Migraine, asthma, dyslipidemia Past surgical history: No surgical history Social & Personal history: Lives with and children Smoking: Patient denies Alcohol: Occasionally Drugs: Occasional use of marijuana Physical examination the day of discharge: General Appearance: Cooperative. Well developed. Well nourished. NAD Head Exam: Normal inspection Neck Exam: Normal inspection. Non-tender. Normal alignment Pulmonary/Respiratory: Chest non-tender. Clear bilateral breath sounds, no crackles, no wheezing. Cardiovascular/Chest: Regular rate and rhythm. No murmurs. No JVD. Peripheral Pulses: 2+ Radial (R). 2+ Radial (L). 2+ Pedal (R). 2+ Pedal (L) Abdominal Exam: no tenderness, Normal bowel sounds. Soft. normal abdomen, no visible veins, No hepatosplenomegaly. No masses Ankle Exam: Negative ankle edema Lower extremities: Negative lower extremity edema Neuro/Mental Status: A&O x4. Coherent. Thoughts/Psych: Normal thought pattern. Appropriate mood and affect. Good judgement and insight Skin Exam: Normal inspection. Normal color. Warm. Dry Nurse was present as assembler gold frame during the examination. Counseled on marijuana use cessation for 16 minutes on the day of discharge. Goals of care discussed with the patient on the day of discharge for 20 minutes; full code. Discussed with Dr. Turk. Operations or Procedures 1.PROCEDURE(s): CXRP - CHEST PORTABLE REASON: weakness ORDER NUMBER(s): [id number], ACCESSION NUMBER(s): [id number] CHEST RADIOGRAPH Indication: weakness IMPRESSION: 1. No acute cardiopulmonary disease. 2. Mild elevation left diaphragm. 2.PROCEDURE(s): HWOCT - HEAD WITHOUT CONTRAST REASON: near syncope ORDER NUMBER(s): [id number], ACCESSION NUMBER(s): [id number] CLINICAL HISTORY: near syncope IMPRESSION: NO ACUTE INTRACRANIAL ABNORMALITY SEEN. 3.PROCEDURE(s): ECIDC - ECHO 2D MODE CARDIAC DOP REASON: Presyncopy ORDER NUMBER(s): [id number], ACCESSION NUMBER(s): [id number] APPROVED REPORT EXAM: Two-dimensional and M-mode echocardiogram with Doppler and color Doppler. Blood Pressure: 134/90 mmHg INDICATION Presyncopy Conclusion LV EF IS 65% AND IS NORMAL NORMAL VALVES SLIGHTLY DILATED LA NORMAL RV FUNCTION NORMAL RVSP IS 20 MM OF HG NO EFFUSION Condition at Discharge: Stable Final Diagnosis/Problems List Presyncope; most likely due to possible dehydration the setting of GI losses secondary to marijuana induced nausea and vomiting Suspected marijuana induced hyperemesis Migraine with possible aura Suspected gastroenteritis Suspected acute complicated UTI Discharge Disposition: Home Discharge Instruct/Medications Diet: Regular Activity: No Restrictions, As Tolerated Follow Up/Referral: Follow-up in discharge Clinic within one week Follow-up with PCP within 1 to 2 weeks Medications: keflex 500 mg po bid Scheduled Cephalexin (Keflex Capsule), 500 MG PO BID Scheduled PRN Ibuprofen Micronized (Motrin Tablet), 600 MG PO TIDPRN PRN Meclizine Hcl (Meclizine Hcl), 12.5 MG PO [id number] PRN Miscellaneous Medications Sumatriptan Succinate (Sumatriptan Succinate), 50 MG PO, (Reported) Discharge Statement: "Patient was advised to return to the ER or call 911 if any headaches, dizziness, shortness of breath, chest pain, abdominal pain, bleeding, fevers, or worsening of medical condition. Patient was counseled about treatment plan, medications, possible side effects, patientverbalized understanding. All questions were answered to the best of my ability. This discharge took greater then 30 minutes in planning, reviewing documentation, counseling the patient, and discussing with other team members." ASSESSMENT ASSESSMENT Hospital Course This is a 50-year-old female who presented to the ED with the chief complaint of intractable nausea and vomiting followed by generalized weakness. The patient mentioned she had nausea, vomiting and diarrhea since 2 days. The patient mentioned she woke up in the middle of the night with a migraine headache 1 day before admission and had 5 episodes of vomiting, which made her feel so weak that she could not walk to the bathroom and had to crawl to the bathroom. She also experienced dizziness, which the patient explained as a feeling like the whole room is spinning. She tried taking her migraine medication but it did not relieve her symptoms. She experienced generalized weakness after the episodes and hence came to the hospital. She denied any headache, fever, chills or syncope. Patient was thought to have UTI on urinalysis and was started on metronidazole. On evaluation today, vitals are stable and labs within range the patient mentions she is feeling much better and does not have any dizziness. All medications and recommendations were explained thoroughly to the patient and she demonstrated understanding of the same. All questions were answered and all concerns were addressed. Patient was discharged home a stable condition. Assessment Presyncope Migraine with possible aura possible gastroenteritis acute complicated UTI Addendum Addendum Addendum I was physically present for the [place] portions of the service provided to patient by THE RESIDENT. I have reviewed the documentation, discussed the case with resident and agree with the resident's documentation except as noted. Also the patient's clinical case was discussed with the patient's nurse. This medical document was created using an electronic medical record system with computerized dictation system. Although this document has been carefully reviewed, there might still be some phonetic and typographical errors. These areas are purely typographical due to imperfections of the software programs, and do not reflect any compromise in the patient's medical care. Late signature. Date of Service: Mar 07, 2025 Billing Provider: QUEENIE TURK MD Common Visit Codes: 72337-DMJ/OBS DISCH DAY >30min Secondary Visit Codes: 52438-SEXTY CHNG SMOKING >10MIN (16 minutes for marijuana use cessation), [id number] CARE PLAN 30 MINUTES (20 minutes) JUAN CONNELL RESIDENT Mar 07, 2025 13:47 MUNIRA BOWLES RESIDENT Mar 07, 2025 15:12 QUEENIE TURK MD Mar 09, 2025 03:56
[2025-03-07] MEDS ORDERED: IBU600T PO (14:18)
[2025-03-07] MEDS ORDERED: MECL-90 PO (14:18)
[2025-03-07] MEDS ORDERED: CEPH250C PO (14:18)
== END 2025-03-07 17:00 | disposition home or self-care (01) | DRG 690 ==
LOC: ER 14:22 → EDUNIT# 14:22 → EDBD 14:22 → OVERFLOW 23:22 → EAST 03-06 03:12 → TELE-EAST 03-06 08:17
PROVIDERS: ADMIT Student in an Organized Health Care Education/Training Program; ATTEND Student in an Organized Health Care Education/Training Program
DX: N39.0 Urinary tract infection, site not specified (principal); G43.109 Migraine with aura, not intractable, without status migrainosus; K52.9 Noninfective gastroenteritis and colitis, unspecified; J45.909 Unspecified asthma, uncomplicated; E78.5 Hyperlipidemia, unspecified; R55 Syncope and collapse; F12.90 Cannabis use, unspecified, uncomplicated; E86.0 Dehydration; Z91.018 Allergy to other foods; Z82.3 Family history of stroke; Z80.6 Family history of leukemia
CPT/HCPCS: 36415; 70450; 71045; 80048; 80053; 80307; 80320; 81001; 82607; 83605; 83735; 83880; 84100; 84443; 84484; 84702; 85025; 85610; 85730; 87040; 87086; 93306; 96361; 96374; G0378; J2405; J2470; J3490